=== PATIENT | male | born 1935 ===

== ENCOUNTER 2018-09-14 19:28 | Emergency (ER) | payer OTHER, MEDICARE ==
[2018-09-14 19:36] VITALS: RESP 18; TEMP 97.5; O2SAT 97
[2018-09-14 20:09] VITALS: BP 149/87; PULSE 63
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
== END 2018-09-14 21:25 | disposition home or self-care (01) ==
LOC: H.ER 19:28
DX: S90.02XA Contusion of left ankle, initial encounter (principal); V43.52XA Car driver injured in collision with other type car in traffic accident, initial encounter; Y92.410 Unspecified street and highway as the place of occurrence of the external cause